=== PATIENT | male | born 1990 | race African-American/Black ===

== ENCOUNTER 2020-10-11 22:12 | Emergency (ER) | payer OTHER ==
[~2020-10-11 22:12] MED LIST: Iopamidol-370 76% 500 ML 1 ML ONE
[2020-10-11] MEDS ORDERED: Ketorolac Tromethamine 30 MG/ML VIAL ONE (22:46)
[2020-10-11] MEDS ORDERED: HYDROcodone/Acetaminophen 10/325 mg Tablet ONE (22:46)
[2020-10-11 23:09] LABS: #Basophils 0.1 thou/uL (0.0-0.2); #Eosinphils 0.2 thou/uL (0.0-0.7); #Lymphocytes 2.8 thou/uL (1.20-3.40); #Monocytes 0.8 thou/uL (0.11-0.59); #Neutrophils 5.7 thou/uL (1.40-6.50); %Basophils 0.7 % (0.0-1.0); %Eosinophils 2.1 % (0.0-10.0); %Lymphocytes 29.1 % (21.0-51.0); %Monocytes 8.4 % (0.0-10.0); %Neutrophils 59.7 % (42.0-75.0); Hemoglobin 15.1 g/dL (14.0-18.0); Mean Corpuscular HGB CONC 32.7 g/dL (32.0-36.0); Mean Corpuscular Hemoglobin 32.1 pg (27.0-31.0); Mean Corpuscular Volume 98.5 fL (78.0-98.0); Mean Platelet Volume 8.2 fL (7.4-10.4); Platelet Count 185 thou/uL (130-400); RBC Distribution Width 13.2 % (11.5-14.5); Red Blood Cell (RBC) Count 4.68 mill/uL (4.70-6.10); White Blood Cell (WBC) Count 9.5 thou/uL (4.8-10.8)
[2020-10-11 23:28] LABS: ALT (SGPT) 23 U/L (8-55); AST (SGOT) 16 U/L (5-34); Albumin 4.1 g/dL (3.5-5.0); Alkaline Phosphatase 114 U/L (40-110); Anion Gap 13 mmol/L (10-20); BUN (Urea Nitrogen) 11 mg/dL (8.9-20.6); Bilirubin, Total 0.6 mg/dL (0.2-1.2); Calc. Creatinine Clearance 0 mL/min (70-130); Calcium 8.7 mg/dL (7.8-10.44); Carbon Dioxide 25 mmol/L (22-29); Chloride 105 mmol/L (98-107); Globulin 3.2 g/dL (2.4-3.5); Glucose 93 mg/dL (70-105); Potassium 3.6 mmol/L (3.5-5.1); Protein, Total 7.3 g/dL (6.0-8.3); Sodium 139 mmol/L (136-145)
[2020-10-12] MEDS ORDERED: Clindamycin/D5W 900 mg/50 ml Premix Bag ONE (00:05)
[2020-10-12 01:18] LABS: Bilirubin Negative (Negative); Blood, Urine Negative (Negative); Clarity Clear (Clear); Glucose, Urine (Dipstick) Normal (Negative); Ketone, Urine Negative (Negative); Leukocyte Negative Leu/uL (Negative); Nitrite Negative (Negative); Protein, Urine (Dipstick) 20 mg/dL (Neg-Trace); Specific Gravity, Urine 1.039 (1.002-1.036)
[2020-10-12] MEDS ORDERED: Vancomycin 1 GM/200 ML BAG ONE ×2 (02:03→02:04)
--- NOTE | 2020-10-12 07:39 | ULT ---
TESTICULAR ULTRASOUND WITH HERNANDEZ SCALE AND COLOR FLOW AND SPECTRAL DOPPLER IMAGING: HISTORY: A 30-year-old male with right-sided testicular pain and scrotal edema on and off for 1 month. FINDINGS: The right testis measures 7.4 x 5.7 x 4.8 cm. There is a large complex mass in the right testis sam uring 5.1 x 3.8 x 3.8 cm with solid and some cystic components. Increased blood flow is seen to the periphery of this mass. A right-sided varicocele is present. The left testis measures 2.9 x 3.9 x 2.3 cm without focal mass or microlithiasis. The epididymi are normal bilaterally. A small left hydrocele is present. IMPRESSION: Large right complex testicular mass with right varicocele. The possibility of neoplasm should be con sidered. Urologic consultation is recommended. Discussed over the telephone with Dr. Peggy Darnell in the emergency room at 11:46 p.m. CODE SEKOU POS: [facility]
--- NOTE | 2020-10-12 08:23 | CT ---
PRELIMINARY REPORT/[facility]/EMERGENCY AFTER HOURS PROCEDURE: EXAM: CT Abdomen and Pelvis with Intravenous Contrast CLINICAL HISTORY: ULTRASOUND PERFORMED YESTERDAY EVENING HOWS RIGHT SIDED TESTICULAR MASS. EVAL FOR METS. TECHNIQUE: Axial computed tomography images of the abdomen and pelvis with intravenous contrast. CONTRAST: With; ISOVUE 370,100mL COMPARISON: Abnormal appearance of the imaged portion of the right scrotum, correlate with comparison testicular ultrasound. FINDINGS: LUNG BASES: No basilar airspace consolidation or pleural effusion. LIVER: Unremarkable. GALLBLADDER AND BILE DUCTS: Unremarkable. No calcified stone. No ductal dilation. PANCREAS: Unremarkable. SPLEEN: Unremarkable. ADRENAL GLANDS: Unremarkable. KIDNEYS, URETERS, AND BLADDER: Unremarkable. No hydronephrosis or nephrolithiasis. No ureteral or bladder calculi. STOMACH AND BOWEL: No obstruction. No wall thickening. No CT evidence of colitis or acute diverticulitis. APPENDIX: No CT evidence for appendicitis. PERITONEUM: No free fluid. No free air. LYMPH NODES: No lymphadenopathy. REPRODUCTIVE: Unremarkable as visualized. VASCULATURE: No aortic aneurysm. BONES: No fracture or suspicious osseous abnormality. ABDOMINAL WALL AND SOFT TISSUES: Unremarkable. IMPRESSION: No acute intra-abdominal or pelvic abnormality. No CT evidence of metastatic disease. ELECTRONICALLY SIGNED BY: Dat Srinivasan DO Oct 12, 2020 12:58:33 AM UI DEVELOPER This report is intended for review by the ordering physician only, in accordance of law. If you recei ve this report in error, please call [facility] at [phone]. FINAL REPORT CT ABDOMEN AND PELVIS PERFORMED WITH INTRAVENOUS CONTRAST ENHANCEMENT: HISTORY: Right testicular mass noted on ultrasound examination. FINDINGS: The lung bases are clear. The liver, spleen, pancreas, and gallbladder regions appear unremarkable. Right and left adrenal glands and right and left kidneys are normal in size. There is no significant periaortic or mesenteric lymphadenopathy. CT OF PELVIS PERFORMED WITH CONTRAST ENHANCEMENT: No adenopathy, mass, or free fluid. Review of osseous structures shows no lytic or blastic bony changes. IMPRESSION: 1. Unremarkable CT abdomen and pelvis. No evidence for metastatic disease. 2. This report is in agreement with the temporary report issued by [facility]. [place] [facility] [place]
== END 2020-10-12 03:24 | disposition home or self-care (01) ==
LOC: ERS 22:12
DX: N50.89 Other specified disorders of the male genital organs (principal); I86.1 Scrotal varices
CPT/HCPCS: 36415; 74177; 76870; 80053; 81003; 82105; 83615; 84702; 85025; 87040; 93976; 96365; 96367; 96375; J1885; J3370; J3490; Q9967

== ENCOUNTER 2020-10-13 07:27 | Outpatient (CLI) | payer OTHER ==
[2020-10-14 02:35] LABS: SARS-CoV-2 PCR by NAA Not Detected (NotDetected)
== END 2020-10-13 07:28 | disposition home or self-care (01) ==
LOC: LABBT 07:27
PROVIDERS: ATTEND Urology
DX: Z20.822 Contact with and (suspected) exposure to COVID-19 (principal)
CPT/HCPCS: 87635; U0003; U0005

== ENCOUNTER 2020-10-17 07:02 | Day surgery (SDC) | payer OTHER ==
[2020-10-17] MEDS ORDERED: Fentanyl 100 MCG/2 ML VIAL ONE ×2 (09:04→11:35)
[2020-10-17] MEDS ORDERED: Famotidine/PF 20 mg/2ml Vial ONE (09:04)
[2020-10-17] MEDS ORDERED: Meperidine HCl/PF 25 MG/ML VIAL ONE (09:04)
[2020-10-17] MEDS ORDERED: SUGAMMADEX SODIUM 500 MG/5 ML VIAL ONE (09:14)
[2020-10-17] MEDS ORDERED: Bupivacaine 0.25% HCL 30 ML VIAL ONE (09:17)
[2020-10-17] MEDS ORDERED: Dexamethasone 20 MG/5 ML VIAL ONE (10:29)
[2020-10-17] MEDS ORDERED: Ondansetron PF 4 MG/2 ML Vial ONE (10:29)
[2020-10-17] MEDS ORDERED: PROPOFOL 200 MG/20 ML VIAL ONE (10:29)
[2020-10-17] MEDS ORDERED: Metoclopramide HCl 10 MG/2 ML VIAL ONE (10:29)
[2020-10-17] MEDS ORDERED: Lidocaine 1% PF 5 ML VIAL ONE (10:29)
[2020-10-17] MEDS ORDERED: Rocuronium Bromide 10 MG/ML (10ML VIAL) ONE (10:29)
[2020-10-17] MEDS ORDERED: Bacitracin Zinc Ointment 30 gm TUBE ONE (10:40)
[2020-10-17] MEDS ORDERED: Morphine 2 MG/ML VIAL ONE (12:24)
== END 2020-10-17 13:45 | disposition home or self-care (01) ==
LOC: SDC 07:02
PROVIDERS: ATTEND Urology
PROC: 0VTJ0ZZ Resection of Right Epididymis, Open Approach (ICD-10-PCS; principal; 2020-10-17)
PROC: 0VT90ZZ Resection of Right Testis, Open Approach (ICD-10-PCS; principal; 2020-10-17)
PROC: 0VBF0ZZ Excision of Right Spermatic Cord, Open Approach (ICD-10-PCS; principal; 2020-10-17)
DX: C62.91 Malignant neoplasm of right testis, unspecified whether descended or undescended (principal)
CPT/HCPCS: 88309; J0690; J1100; J2175; J2270; J2405; J2704; J2765; J3010; S0020; S0028

== ENCOUNTER 2020-12-29 01:52 | Emergency (ER) | payer OTHER ==
[2020-12-29 02:47] LABS: Hemoglobin 14.1 g/dL (14.0-18.0); Mean Corpuscular HGB CONC 34.5 g/dL (32.0-36.0); Mean Corpuscular Hemoglobin 33.2 pg (27.0-31.0); Mean Corpuscular Volume 96.1 fL (78.0-98.0); RBC Distribution Width 13.5 % (11.5-14.5); Red Blood Cell (RBC) Count 4.25 mill/uL (4.70-6.10); White Blood Cell (WBC) Count 8.1 thou/uL (4.8-10.8)
[2020-12-29 03:06] LABS: Anion Gap 12 mmol/L (10-20); BUN (Urea Nitrogen) 13 mg/dL (8.9-20.6); Calc. Creatinine Clearance 0 mL/min (70-130); Calcium 8.8 mg/dL (7.8-10.44); Carbon Dioxide 27 mmol/L (22-29); Chloride 105 mmol/L (98-107); Glucose 90 mg/dL (70-105); Potassium 3.9 mmol/L (3.5-5.1); Sodium 140 mmol/L (136-145)
[2020-12-29 03:07] LABS: #Basophils 0.1 thou/uL (0.0-0.2); #Eosinphils 0.4 thou/uL (0.0-0.7); #Lymphocytes 3.4 thou/uL (1.20-3.40); #Monocytes 0.6 thou/uL (0.11-0.59); #Neutrophils 3.7 thou/uL (1.40-6.50); %Basophils 0.9 % (0.0-1.0); %Eosinophils 4.8 % (0.0-10.0); %Lymphocytes 41.4 % (21.0-51.0); %Monocytes 7.3 % (0.0-10.0); %Neutrophils 45.6 % (42.0-75.0); Mean Platelet Volume 8.1 fL (7.4-10.4); Platelet Count 113 thou/uL (130-400)
[2020-12-29 03:08] LABS: Platelet Morphology Comment Appears Decreased
== END 2020-12-29 03:29 | disposition home or self-care (01) ==
LOC: ERS 01:52
DX: R07.89 Other chest pain (principal); D69.6 Thrombocytopenia, unspecified
CPT/HCPCS: 36415; 71045; 80048; 83880; 84484; 85025; 93005

== ENCOUNTER 2021-05-18 19:30 | Outpatient (CLI) | payer OTHER | END 2021-05-18 19:31 | disposition home or self-care (01) | LOC: SLEEPLAB 19:30 | PROVIDERS: ATTEND Family Medicine | DX: G47.33 Obstructive sleep apnea (adult) (pediatric) (principal); R53.83 Other fatigue; G47.10 Hypersomnia, unspecified; R06.83 Snoring; E66.9 Obesity, unspecified; Z68.42 Body mass index [BMI] 45.0-49.9, adult | CPT/HCPCS: 95811 ==

== ENCOUNTER 2021-08-28 17:15 | Emergency (ER) | payer OTHER ==
[2021-08-28] MEDS ORDERED: Ibuprofen 800 MG TAB ONE (18:47)
[2021-08-28] MEDS ORDERED: Ondansetron ODT 4 MG TAB ONE (18:47)
[2021-08-28] MEDS ORDERED: Acetaminophen 500 MG TAB ONE (18:47)
[2021-08-29 13:17] LABS: SARS-CoV-2 PCR by NAA DETECTED (NotDetected)
== END 2021-08-28 18:50 | disposition home or self-care (01) ==
LOC: ERS 17:15
DX: U07.1 COVID-19 (principal)
CPT/HCPCS: 99284; Q0162; U0003; U0005

== ENCOUNTER 2022-11-02 10:04 | Outpatient (CLI) | payer OTHER ==
[2022-11-02] MEDS ORDERED: Iopamidol 370 76% 100 ML VIAL ONE (11:44)
== END 2022-11-02 10:05 | disposition home or self-care (01) ==
LOC: BICCT 10:04
PROVIDERS: ATTEND Internal Medicine Hematology & Oncology
DX: C62.11 Malignant neoplasm of descended right testis (principal); K76.9 Liver disease, unspecified
CPT/HCPCS: 74177; Q9967